=== PATIENT | male | born 1970 | race Caucasian/White ===

== ENCOUNTER 2018-06-08 10:43 | Emergency (ER) | payer OTHER, MEDICAID ==
[~2018-06-08] VITALS: Ht 152.4 cm; Wt 79.4 kg
[2018-06-08 10:51] VITALS: BP 140/81
--- NOTE | 2018-06-08 10:56 | NUR ---
PT AMBULATES TO BED 7
--- NOTE | 2018-06-08 11:17 | NUR ---
PER CAREGIVER AFTER PT STARTED NEW PRESCRIPTION THERE HAS BEEN A CHANGE IN MENTAL STATUS, PT IS DROPPING CUPS, TRIPPING AND DOZING OFF MORE. AT BASELINE PT KNOWS BIRTHDAY AND CAN TALK NORMALLY. ON ARRIVAL PT IS SPEAKING BUT NOT MAKING SENSE WHICH IS NEW. [facility]CS 13. PUPILS PERRLA. NEW MEDS ARE DIVALPROEX, AND RISPERADONE HX---MENTAL DISABILITY, SCHIZOPHRENIA, BIPOLAR,
[2018-06-08] MEDS ORDERED: diphenhydrAMINE 50 MG/ML VIAL IM ONE (11:40)
[2018-06-08 12:30] VITALS: BP 140/81
--- NOTE | 2018-06-08 12:30 | NUR ---
Patient discharged with v/s stable. Written and verbal after care instructions given and explained. Patient alert, oriented and verbalized understanding of instructions. Ambulatory with by caregiver. All questions addressed prior to discharge. ID band removed. Patient advised to follow up with PMD. Rx of Diphenhydramine given. Patient educated on indication of medication including possible reaction and side effects. Opportunity to ask questions provided and answered.
== END 2018-06-08 12:30 | disposition home or self-care (01) ==
LOC: MED 10:43
DX: G24.09 Other drug induced dystonia (principal); T43.595A Adverse effect of other antipsychotics and neuroleptics, initial encounter; F31.9 Bipolar disorder, unspecified; F20.9 Schizophrenia, unspecified; J45.909 Unspecified asthma, uncomplicated; Y92.89 Other specified places as the place of occurrence of the external cause
CPT/HCPCS: 96372; 99283; J1200

== ENCOUNTER 2018-09-01 16:34 | Emergency (ER) | payer OTHER, MEDICAID ==
[~2018-09-01] VITALS: Ht 154.9 cm; Wt 64.0 kg
[2018-09-01 17:07] VITALS: BP 109/67
--- NOTE | 2018-09-01 18:24 | NUR ---
THADDE[facility] TO ER BED 02
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
[2018-09-01] MEDS ORDERED: BACITRACIN OINT 500 UNITS/GM PKT TP ONE (19:05)
--- NOTE | 2018-09-01 19:08 | NUR ---
REPORT GIVEN TO BRAND MARKETING SPECIALIST RN.
--- NOTE | 2018-09-01 19:30 | NUR ---
RECEIVED REPORT FROM AM NURSE. PT LAYING IN BED, RR EVEN AND UNLABORED. NOTED ABRASION ON R KNEE, R DORSAL FOOT, L DORSAL FOOT AND BLISTER ON L FOOT. SEE SKIN ASSESSMENT. WOUND CARE PERFORMED, SEE WOUND CARE
--- NOTE | 2018-09-01 20:29 | NUR ---
PT DISCHARGED TO CAREGIVERS
--- NOTE | 2018-09-01 20:30 | NUR ---
Patient discharged with v/s stable. Written and verbal after care instructions given and explained. Patient alert, oriented and verbalized understanding of instructions. Ambulatory with steady gait. All questions addressed prior to discharge. ID band removed. Patient advised to follow up with PMD. Rx of IBUPROFEN, BACITRACIN given. Patient educated on indication of medication including possible reaction and side effects. Opportunity to ask questions provided and answered.
[2018-09-01 20:34] VITALS: BP 117/74
== END 2018-09-01 20:30 | disposition home or self-care (01) ==
LOC: MED 16:34
DX: S90.822A Blister (nonthermal), left foot, initial encounter (principal); S80.219A Abrasion, unspecified knee, initial encounter; J45.909 Unspecified asthma, uncomplicated; F31.9 Bipolar disorder, unspecified; F20.9 Schizophrenia, unspecified; X58.XXXA Exposure to other specified factors, initial encounter; Y93.89 Activity, other specified; Y92.89 Other specified places as the place of occurrence of the external cause; Y99.8 Other external cause status
CPT/HCPCS: 73630; 99283

== ENCOUNTER 2018-10-17 17:43 | Emergency (ER) | payer OTHER, MEDICAID ==
[~2018-10-17] VITALS: Ht 157.5 cm; Wt 72.6 kg
--- NOTE | 2018-10-17 17:43 | NUR ---
Glen CASTAÑEDA, transferred to bed 7. RN evaluating patient at bedside.
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
[2018-10-17 17:45] VITALS: BP 129/77
[2018-10-17] MEDS ORDERED: NACL 0.9% 1,000 ML IV ONE (17:50)
[2018-10-17] MEDS ORDERED: ASPIRIN 81 MG TAB.CHEW PO ONE (17:50)
--- NOTE | 2018-10-17 18:07 | NUR ---
Dr. Galvan evaluating patient at bedside.
[2018-10-17] MEDS ORDERED: KETOROLAC 30 MG/ML VIAL IVP ONE (18:15)
[2018-10-17] MEDS ORDERED: methylPREDNISolone SS 125 MG/2 ML VIAL IVP ONE (18:15)
--- NOTE | 2018-10-17 18:15 | NUR ---
metallurgy laboratory technician at bedside.
[2018-10-17 18:35] LABS: BASOPHILS % (AUTO) 0.6 % (0.0-2.0); EOSINOPHILS # (AUTO) 0.2 K/uL (0-0.4); EOSINOPHILS % (AUTO) 3.7 % (0.0-4.0); HEMATOCRIT 42.3 % (36-52); HEMOGLOBIN 14.7 g/dL (12.0-18.0); LYMPHOCYTES # (AUTO) 2.5 K/uL (2.0-11.5); MEAN CORPUSCULAR HEMOGLOBIN 34 pg (27-31); MEAN CORPUSCULAR HGB CONC 35 g/dL (33-37); MEAN CORPUSCULAR VOLUME 97.7 fL (80-94); MONOCYTES # (AUTO) 0.5 K/uL (0.8-1.0); MONOCYTES % (AUTO) 7.7 % (1.7-9.3); NEUTROPHILS # (AUTO) 2.8 K/uL (1.8-7.7); PLATELET COUNT (AUTO) 217 K/uL (140-450); RED BLOOD CELL COUNT(AUTO) 4.33 MIL/uL (4.20-6.10); RED CELL DISTRIBUTION WIDTH 13.7 % (11.6-13.7)
[2018-10-17 18:45] LABS: ANION GAP 11.8 (8-16); CARBON DIOXIDE 26.2 mmol/L (21-32); CREATININE 0.9 mg/dL (0.7-1.3)
[2018-10-17 18:52] LABS: ALBUMIN 3.2 g/dL (3.4-5.0); TOTAL BILIRUBIN 0.2 mg/dL (0.0-1.0)
--- NOTE | 2018-10-17 19:14 | NUR ---
IV removed, catheter intact and site benign. Applied folded 4x4 gauze and tape to stop bleeding.
[2018-10-17 19:15] VITALS: BP 109/71
--- NOTE | 2018-10-17 19:15 | NUR ---
Patient discharged with v/s stable. Written and verbal after care instructions given and explained. Patient alert, oriented and verbalized understanding of instructions. Ambulatory with steady gait. All questions addressed prior to discharge. ID band removed. Patient advised to follow up with PMD. Rx of PREDNISONE, MOTRIN given. Patient educated on indication of medication including possible reaction and side effects. Opportunity to ask questions provided and answered.
== END 2018-10-17 19:15 | disposition home or self-care (01) ==
LOC: MED 17:43
DX: I31.9 Disease of pericardium, unspecified (principal); J45.909 Unspecified asthma, uncomplicated; F17.200 Nicotine dependence, unspecified, uncomplicated
CPT/HCPCS: 36415; 71045; 80053; 84484; 85025; 85610; 85730; 93005; 96374; 96375; 99284; J1885; J2930; Q0092; J7030

== ENCOUNTER 2019-02-07 16:10 | Emergency (ER) | payer OTHER, MEDICAID ==
[~2019-02-07] VITALS: Ht 167.6 cm; Wt 68.9 kg
[2019-02-07 16:19] VITALS: BP 111/67
--- NOTE | 2019-02-07 16:28 | NUR ---
brought in by creative arts therapist requesting medication refill risperdal 2mg bid / banophen 50mg hs insomnia hx---schizophrenia, mental delayed
[2019-02-07 16:33] VITALS: BP 111/67
--- NOTE | 2019-02-07 16:33 | NUR ---
Patient discharged with v/s stable. Written and verbal after care instructions given and explained. Patient alert, oriented and verbalized understanding of instructions. Ambulatory with steady gait. All questions addressed prior to discharge. ID band removed. Patient advised to follow up with PMD. Rx of respirdol/bacophen given. Patient educated on indication of medication including possible reaction and side effects. Opportunity to ask questions provided and answered.
== END 2019-02-07 16:33 | disposition home or self-care (01) ==
LOC: MED 16:10
DX: Z76.0 Encounter for issue of repeat prescription (principal); J45.909 Unspecified asthma, uncomplicated
CPT/HCPCS: 99283

== ENCOUNTER 2019-02-23 09:28 | Emergency (ER) | payer OTHER, MEDICAID ==
[~2019-02-23] VITALS: Ht 152.4 cm; Wt 69.9 kg
[2019-02-23 09:30] VITALS: BP 121/82
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
--- NOTE | 2019-02-23 09:45 | NUR ---
DR. FRANKLIN AT BEDSIDE
[2019-02-23 10:21] VITALS: BP 116/65
== END 2019-02-23 10:21 | disposition home or self-care (01) ==
LOC: MED 09:28
DX: L98.8 Other specified disorders of the skin and subcutaneous tissue (principal); M79.671 Pain in right foot; J45.909 Unspecified asthma, uncomplicated
CPT/HCPCS: 99282

== ENCOUNTER 2019-03-14 15:17 | Emergency (ER) | payer OTHER, MEDICAID ==
[~2019-03-14] VITALS: Ht 149.9 cm; Wt 68.9 kg
[2019-03-14 15:20] VITALS: BP 135/95
--- NOTE | 2019-03-14 15:27 | NUR ---
BIB CAREGIVER W COMPLAINT OF REDNESS & SWELLING TO LLE NEAR ANKLE. PER CAREGIVER SHE DOES NOT KNOW WHAT HAPPENED OR WHEN IT HAPPENED. PT STATES IT IS PAINFUL.HX: MENTALLY DISABLED, SCHIZOPHRENIA, BIPOLAR, ASTHMA. PATIENT STATES PAIN OF 5/10 AT THIS TIME. PATIENT POSITIONED FOR COMFORT; LLL ELEVATED; BEDRAILS UP X1; BED DOWN. ER MD MADE AWARE OF PT STATUS.
[2019-03-14] MEDS ORDERED: ceFAZolin 1,000 MG VIAL ONE (15:37)
[2019-03-14 16:58] VITALS: BP 135/95
--- NOTE | 2019-03-14 16:58 | NUR ---
Patient discharged with v/s stable BY DR DIXON. Written and verbal after care instructions given and explained. Patient alert, oriented and verbalized understanding of instructions. Ambulatory with steady gait. All questions addressed prior to discharge. ID band removed. Patient advised to follow up with PMD. Rx of KEFLEX given. Patient educated on indication of medication including possible reaction and side effects. Opportunity to ask questions provided and answered.
== END 2019-03-14 16:58 | disposition home or self-care (01) ==
LOC: MED 15:17
DX: L03.116 Cellulitis of left lower limb (principal); F79 Unspecified intellectual disabilities; F31.9 Bipolar disorder, unspecified; F20.9 Schizophrenia, unspecified; J45.909 Unspecified asthma, uncomplicated
CPT/HCPCS: 36415; 87040; 96365; 99283; J0690

== ENCOUNTER 2019-11-06 09:14 | Emergency (ER) | payer OTHER, MEDICAID ==
[~2019-11-06] VITALS: Ht 157.5 cm; Wt 71.0 kg
[2019-11-06 09:16] VITALS: BP 114/59
--- NOTE | 2019-11-06 09:17 | NUR ---
PT AMBULATED TO ER BED
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
--- NOTE | 2019-11-06 09:30 | NUR ---
Note naveen in EDM - 11/06/19 at 1010 by [facility] PT AMBULATED TO ER BED
[2019-11-06 09:52] VITALS: BP 111/63
--- NOTE | 2019-11-06 09:52 | NUR ---
Patient discharged with v/s stable. Written and verbal after care instructions given and explained REGARDING EYE CONTUSION. Patient verbalized understanding. Ambulatory with steady gait. All questions addressed prior to discharge. Advised to follow up with PMD. INSTRUCTED THAT ICE CAN BE APPIED TO INJURY AND MOTRIN/TYLENOL PRN PAIN
== END 2019-11-06 09:52 | disposition home or self-care (01) ==
LOC: MED 09:14
DX: S05.12XA Contusion of eyeball and orbital tissues, left eye, initial encounter (principal); F84.0 Autistic disorder; J45.909 Unspecified asthma, uncomplicated; X58.XXXA Exposure to other specified factors, initial encounter; Y93.89 Activity, other specified; Y92.89 Other specified places as the place of occurrence of the external cause; Y99.8 Other external cause status
CPT/HCPCS: 99282

== ENCOUNTER 2022-12-25 07:43 | Emergency (ER) | payer MEDICARE, MEDICAID ==
[~2022-12-25] VITALS: Ht 154.9 cm; Wt 64.4 kg
[2022-12-25 07:48] VITALS: BP 113/64; PULSE 108; RESP 20; TEMP 97.9; O2SAT 95
--- NOTE | 2022-12-25 08:00 | NUR ---
MD AT BEDSIDE EVALUATING AT BEDSIDE
[2022-12-25] MEDS ORDERED: LOTC TP (08:14)
[2022-12-25 08:24] VITALS: BP 105/70; PULSE 98; RESP 16; TEMP 96.7; O2SAT 95
--- NOTE | 2022-12-25 08:25 | NUR ---
Patient discharged with v/s stable. Written and verbal after care instructions given and explained. Patient alert, oriented and verbalized understanding of instructions. Ambulatory with by caregiver. All questions addressed prior to discharge. ID band removed. Patient advised to follow up with PMD. Rx of LOTRIMIN 1% given. Patient educated on indication of medication including possible reaction and side effects. Opportunity to ask questions provided and answered.
== END 2022-12-25 08:25 | disposition home or self-care (01) ==
LOC: MED 07:43
DX: B37.2 Candidiasis of skin and nail (principal); Z79.899 Other long term (current) drug therapy
CPT/HCPCS: 99282